=== PATIENT | female | born 1975 | race Caucasian/White ===

== ENCOUNTER 2017-10-11 12:36 | Emergency (ER) | payer OTHER ==
[~2017-10-11] VITALS: Ht 152.4 cm; Wt 68.0 kg
== END 2017-10-11 14:25 | disposition home or self-care (01) ==
LOC: ER 12:36
DX: R53.81 Other malaise (principal)

== ENCOUNTER → 2017-10-11 | Emergency (ER) | payer OTHER | END | disposition left against medical advice (07) | LOC: ER 11:42 | DX: Z53.20 Procedure and treatment not carried out because of patient's decision for unspecified reasons (principal) ==